=== PATIENT | female | born 1975 | race African-American/Black ===

== ENCOUNTER 2022-10-02 19:03 | Emergency (ER) | payer OTHER ==
[2022-10-02] MEDS ORDERED: LIDOCAINE 1% MPF 5 ML VIAL ONE (19:33)
--- NOTE | 2022-10-02 19:45 | EDPHYS ---
Physician Documentation [facility] Name: Catrachita Collins Age: 47 yrs Sex: Female : 1975 Arrival Date: 10/02/2022 Time: 19:03 Bed 11 Private MD: ED Physician William Delcid HPI: 10/02 19:17 This 47 yrs old Black Female presents to ER via Unassigned with complaints of FOOT FISH sp4 HOOK. 19:30 The patient or guardian reports the patient has a suspected foreign body, of the bottom kb of right foot. The reported likely foreign body is a fishhook. Onset: The symptoms/episode began/occurred just prior to arrival. Current symptoms: foreign body sensation. Treatment Prior to Arrival: none. The patient has not experienced similar symptoms in the past. The patient has not recently seen a physician. Historical: - Allergies: 19:47 No Known Allergies; kd3 - Immunization history:: Adult Immunizations unknown. - Social history:: Smoking status: unknown. ROS: 19:30 Constitutional: Negative for fever, chills, and weight loss. kb 19:30 Skin: Positive for puncture, of the ball of right foot, with fishhook. 19:30 All other systems are negative. Exam: 19:30 Constitutional: This is a well developed, well nourished patient who is awake, alert, kb and in no acute distress. Head/Face: Normocephalic, atraumatic. ENT: Moist Mucous membranes Cardiovascular: Regular rate and rhythm with a normal S1 and S2. No gallops, murmurs, or rubs. No pulse deficits. Respiratory: Respirations even and unlabored. No increased work of breathing. Talking in full sentences MS/ Extremity: Pulses equal, no cyanosis. Neurovascular intact. Full, normal range of motion. Neuro: Awake and alert, GCS 15, oriented to person, place, time, and situation. Moves all extremities. Normal gait. 19:30 Skin: injury, puncture(s), that are superficial, of the ball of right foot, with fishhook . Vital Signs: 19:46 BP 155 / 83; Pulse 72; Resp 19; Temp 98.2(O); Pulse Ox 99% on R/A; kd3 Procedures: 19:44 Foreign Body Removal: a fishhook, from the right ball of right foot, by 2ml 1% kb lidocaine injected, fishhook pushed through, carri clipped off and fishhook pulled back out. Dressinx2, The patient tolerated the removal well. MDM: 19:16 Patient medically screened. kb 19:31 Data reviewed: vital signs, nurses notes. Historians other than the Patient: doreen Spouse/Significant Other: . Counseling: I had a detailed discussion with the patient and/or guardian regarding: the historical points, exam findings, and any diagnostic results supporting the discharge/admit diagnosis, the need for outpatient follow up, a family practitioner, to return to the emergency department if symptoms worsen or persist or if there are any questions or concerns that arise at home. Administered Medications: 19:48 Drug: Lidocaine Infiltration (1 %) 1 vials Volume: 5 ml; Route: Infiltration; kd3 Disposition: 10/03 07:32 Co-signature as Attending Physician, William Delcid MD I agree with the assessment sp4 and plan of care. I reviewed the patient's care provided by the Advanced Practice Provider and agree with the diagnosis and treatment plan. Disposition Summary: 10/02/22 19:45 Discharge Ordered Location: Home kb Condition: Stable kb Diagnosis - Puncture wound without foreign body of foot kb Followup: kb - With: Emergency Department - When: As needed - Reason: Worsening of condition Followup: kb - With: Private Physician - When: 2 - 3 days - Reason: Recheck today's complaints, Continuance of care, Re-evaluation by your physician Discharge Instructions: - Discharge Summary Sheet kb - Puncture Wound, [id number] kb Forms: - Medication Reconciliation Form kb - Thank You Letter kb - Antibiotic Education kb - Prescription Opioid Use kb Prescriptions: - Doxycycline Hyclate 100 mg Oral Tablet - take 1 tablet by ORAL route every 12 hours; 20 tablet; Refills: 0, Product kb Selection Permitted Signatures: Misty Shelby FNP-C FNP-Ckb Doucette, Kyli, RN RN kd3 William Delcid MD MD sp4
--- NOTE | 2022-10-02 19:58 | ER ---
Nurse's Notes [facility] Name: Catrachita Collins Age: 47 yrs Sex: Female : 1975 Arrival Date: 10/02/2022 Time: 19:03 Bed 11 Private MD: Diagnosis: Puncture wound without foreign body of foot Presentation: 10/02 19:46 Chief complaint: Patient states: I stepped on a fish hook. It is in between my right kd3 pinky toe and second toe. Coronavirus screen: Vaccine status: Patient reports receiving the 2nd dose of the covid vaccine. Ebola Screen: No symptoms or risks identified at this time. Initial Sepsis Screen: Does the patient meet any 2 criteria? No. Patient's initial sepsis screen is negative. Does the patient have a suspected source of infection? No. Patient's initial sepsis screen is negative. Risk Assessment: Do you want to hurt yourself or someone else? Patient reports no desire to harm self or others. Onset of symptoms was October 02, 2022. 19:46 Method Of Arrival: Ambulatory kd3 19:46 Acuity: ZEINA 4 kd3 Triage Assessment: 19:47 General: Appears uncomfortable, Behavior is calm, cooperative. Pain: Complains of pain kd3 in ball of right foot. Historical: - Allergies: 19:47 No Known Allergies; kd3 - Immunization history:: Adult Immunizations unknown. - Social history:: Smoking status: unknown. Screenin:57 [facility] ED Fall Risk Assessment (Adult) History of falling in the last 3 months, kd3 including since admission No falls in past 3 months (0 pts) Confusion or Disorientation No (0 pts) Intoxicated or Sedated No (0 pts) Impaired Gait No (0 pts) Mobility Assist Device Used No (0 pt) Altered Elimination No (0 pt) Score/Fall Risk Level 0 - 2 = Low Risk Maintained a safe environment. Abuse screen: Denies threats or abuse. Denies injuries from another. Nutritional screening: No deficits noted. Tuberculosis screening: No symptoms or risk factors identified. Vital Signs: 19:46 BP 155 / 83; Pulse 72; Resp 19; Temp 98.2(O); Pulse Ox 99% on R/A; kd3 ED Course: 19:05 Patient arrived in ED. ts1 19:16 Misty Shelby FNP-C is PHCP. kb 19:16 William Delcid MD is Attending Physician. kb 19:46 Melba Mosley, RN is Primary Nurse. kd3 19:47 Triage completed. kd3 19:47 Arm band placed on right wrist. kd3 19:57 Patient has correct armband on for positive identification. kd3 19:57 No provider procedures requiring assistance completed. Patient did not have IV access kd3 during this emergency room visit. Administered Medications: 19:48 Drug: Lidocaine Infiltration (1 %) 1 vials Volume: 5 ml; Route: Infiltration; kd3 Medication: 19:57 VIS not applicable for this client. kd3 Outcome: 19:45 Discharge ordered by . kb 19:57 Discharged to home ambulatory. kd3 19:57 Condition: stable 19:57 Condition: stable 19:57 Discharge instructions given to patient, Instructed on discharge instructions, follow up and referral plans. Demonstrated understanding of instructions, follow-up care, medications, Prescriptions given X 1. 19:57 Patient left the ED. kd3 Signatures: Misty Shelby FNP-C PARTS IDENTIFIER-CkMelba Timmons, RN RN kd3 Rohini Rudd, PAS PAS ts1
[2022-10-02 20:09] VITALS: BP 155/83; TEMP 98.2; O2SAT 99
== END 2022-10-02 19:57 | disposition home or self-care (01) ==
LOC: ER 19:03
DX: S91.341A Puncture wound with foreign body, right foot, initial encounter (principal)
CPT/HCPCS: 99283; J2001